=== PATIENT | female | born 1970 | race Caucasian/White ===

== ENCOUNTER 2016-12-03 18:29 | Emergency (ER) | payer BC ==
[~2016-12-03] VITALS: Ht 162.6 cm; Wt 105.7 kg
--- NOTE | ~2016-12-03 | CR72 ---
[facility] A Service of [facility] RADIOLOGY TEXT RESULTS PATIENT: HERLINDA PHOENIX LOCATION: [facility] : 72 UNIT #: [id number] AGE: [address]: Zak Garcia MD SEX: F ORDER DR: [id number] [facility] [address] [place], [place] [address] [id number] MR#: [id number] Acc #: [id number] NAME: HERLINDA PHOENIX : 1970 SEX: F STUDY DATE/TIME: 12/03/2016 20:03 UNIT: [facility] ROOM: STUDY DESCRIPTION: CR Chest Single View Portable Attending Physician: Zak Garcia M.D. Ordering Physician: Zak Garcia M.D. Primary Care Physician: No Primary Care Physician MEDICAL IMAGING REPORT This report is preliminary unless electronic signature is present EXAM Single view chest dated 12/03/2016. COMPARISON Chest 2 views dated 07/09/2010. HISTORY Shortness of air, hypertension and cough for 2 days. TECHNIQUE Single view of the chest was obtained. FINDINGS A single AP portable view of the chest shows both lungs to be clear. The heart is normal in size. The mediastinal contour is normal. No significant bone abnormalities are seen. IMPRESSION Normal portable chest. Dictated by... Morenita Minor M.D. THIS IS AN ELECTRONICALLY VERIFIED REPORT Morenita Minor M.D. at 12/06/2016 9:16 AM CPR/gz TD: 12/04/2016 10:16 JOB #: [id number] MEDICAL IMAGING REPORT Page 1 of 1 COPY
[~2016-12-03 18:29] MED LIST: ACTOS PO; ADVAIR 2501 DISK W/D PO; ADVAIR INH; ALBUTEROL MININEB NEB; ALBUTEROL17 GM INH; CEFTIN PO; DECADRON PO; DUONEB 2.5-0.5 M3 ML NEB; FLOVENT HFA10.6 GM INH; GLUCOPHAGE XR500 MG PO; LEVAQUIN PO; LOTENSIN PO; LOTENSIN10 MG PO; MEDROL PO; METFORMIN PO; PREDNISONE PO; PREDNISONE10 MG/DOSE PO; SINGULAIR PO
== END 2016-12-03 21:24 | disposition home or self-care (01) ==
LOC: CED 18:29
DX: J44.1 Chronic obstructive pulmonary disease with (acute) exacerbation (principal); E11.65 Type 2 diabetes mellitus with hyperglycemia; I10 Essential (primary) hypertension; F17.210 Nicotine dependence, cigarettes, uncomplicated; Z88.0 Allergy status to penicillin; Z88.1 Allergy status to other antibiotic agents; Z88.8 Allergy status to other drugs, medicaments and biological substances
CPT/HCPCS: 71010; 82947; 94640; 99285